=== PATIENT | male | born 2000 | race African-American/Black ===

== ENCOUNTER 2018-02-02 10:51 | Emergency (ER) | payer OTHER ==
[2018-02-02] MEDS ORDERED: LIDOCAINE 2% MDV 20 ML VIAL SC (12:15)
[2018-02-02] MEDS: metroNIDAZOLE (FLAGYL) 500 MG TAB PO (12:40)
[2018-02-02] MEDS: CEPHALEXIN 500 MG CAP PO (12:40)
== END 2018-02-02 12:48 | disposition home or self-care (01) ==
LOC: M ED 10:51
DX: L05.01 Pilonidal cyst with abscess (principal)
CPT/HCPCS: 87077

== ENCOUNTER → 2018-05-22 | Outpatient (CLI) | payer OTHER | LOC: M LRY 14:46 | DX: M79.644 Pain in right finger(s) (principal) | CPT/HCPCS: 29130 ==